=== PATIENT | female | born 1980 | race Caucasian/White ===

== ENCOUNTER 2023-09-04 13:11 | Emergency (ER) | payer BC | END 2023-09-04 15:15 | disposition home or self-care (01) | LOC: EEVIPCON 13:11 → CSHERS 13:11 | DX: F41.9 Anxiety disorder, unspecified (principal); F17.290 Nicotine dependence, other tobacco product, uncomplicated; F32.A Depression, unspecified; I10 Essential (primary) hypertension | CPT/HCPCS: 99283 ==